=== PATIENT | male | born 1950 | race Caucasian/White ===

== ENCOUNTER 2019-09-15 10:00 | Outpatient (RCR) | payer MEDICARE, OTHER, SELFPAY ==
[2019-09-03 09:55] VITALS: BP 120/76; PULSE 73; RESP 18; TEMP 36.2; BMI 35.1
--- NOTE | 2019-09-03 10:05 | PCM.WC.HP ---
(1) Ulcer of right foot due to type 2 diabetes mellitus Status: Chronic Current Visit: Yes Code(s): E11.621 - Type 2 diabetes mellitus with foot ulcer; L97.519 - Non-pressure chronic ulcer of other part of right foot with unspecified severity (2) Cellulitis of right lower extremity Status: Acute Current Visit: Yes Code(s): L03.115 - Cellulitis of right lower limb (3) Abnormal x-ray of lower extremity Status: Acute Current Visit: Yes Code(s): R93.6 - Abnormal findings on diagnostic imaging of limbs (4) T2DM (type 2 diabetes mellitus) Status: Chronic Current Visit: Yes Code(s): E11.9 - Type 2 diabetes mellitus without complications (5) Gout Status: Chronic Current Visit: Yes Code(s): M10.9 - Gout, unspecified (6) Tenderness of right calf Status: Acute Current Visit: Yes Code(s): M79.661 - Pain in right lower leg (7) intermediate card tender current use of anticoagulant therapy Status: Chronic Current Visit: Yes Code(s): Z79.01 - intermediate card tender (current) use of anticoagulants (8) Afib Status: Chronic Current Visit: Yes Code(s): I48.91 - Unspecified atrial fibrillation (9) Asymptomatic superficial varicosities of lower extremity, bilateral Status: Chronic Current Visit: Yes Code(s): I83.93 - Asymptomatic varicose veins of bilateral lower extremities (10) Essential hypertension Status: Chronic Current Visit: Yes Code(s): I10 - Essential (primary) hypertension History of Present Illness Date of Service: 09/04/19 Chief Complaint: Right foot ulcer History of Wound: Satish is a pleasant 69-year-old male patient who presents today to the wound center for evaluation and treatment of a right foot ulcer. He has significant comorbidities of type 2 diabetes, hypertension, gout, A. fib, and long-term use of anticoagulants. Per patient and his , his type 2 diabetes is well controlled with a recent A1c of 6.1%. He has his A1c checked every 6 months with his primary care provider. He also reports his gout is well controlled with the use of allopurinol, and is unsure when his last gout flare occurred. Per , his INR is typically stable and within range; it was last checked about 1 month ago and was in normal range. In regards to his right foot ulcer, patient states that the wound first occurred in January 2019, but had not been bothersome. About 3 weeks ago, the ulcer became inflamed and painful, and he developed redness and swelling in his right lower extremity. He saw Dr. Manjarrez (podiatry), who sent him to the emergency room. While at the emergency room at [facility], patient had a foot x-ray, which patient and report was normal. After reviewing the xray report, there was noted to be no evidence of acute osteomyelitis, but there was a small foci of soft tissue gas seen laterally. He was given a dose of IV Clindamycin and started on oral Clindamycin and sent home. When no improvement was noted in his redness, swelling, and pain in RLE, he followed up with his primary care provider, who placed him on amoxicillin 500 mg 4 times daily. He is currently on the amoxicillin, but reports no improvement in his symptoms. He has not been using any particular methods of wound care. He washes his foot when in the shower, and typically leaves it uncovered. In the last few days, he has been placing a Band-Aid over the ulcer due to a small amount of clear to bloody drainage. He denies foul smelling or purulent drainage from the wound. He has been wearing a regular wide-fit tennis shoe. He rates pain 9/10 and shooting in right foot. He notes warmth of RLE and tenderness in right calf with ambulation. He does report nighttime chills within the past week, but denies any fever, nausea, vomiting, or diarrhea. Past Medical History Past Medical History: Chronic Problems Ulcer of right foot due to type 2 diabetes mellitus (Chronic) T2DM (type 2 diabetes mellitus) (Chronic) Gout (Chronic) residential current use of anticoagulant therapy (Chronic) Afib (Chronic) Asymptomatic superficial varicosities of lower extremity, bilateral (Chronic) Essential hypertension (Chronic) Allergies/Adverse Reactions: Allergies No Known Allergies Allergy (Verified 09/03/19 09:46) Home Medications: Ambulatory Orders Medication Instructions Recorded Allopurinol 300 mg PO DAILY 09/03/19 Amoxicillin 500 mg PO [id number] 09/03/19 Carvedilol 6.25 mg PO BID 09/03/19 Colestipol HCl 1 gm PO BID 09/03/19 Furosemide 40 mg PO BID 09/03/19 Metformin HCl 500 mg PO BID 09/03/19 Pantoprazole Sodium [Protonix] 40 mg PO DAILY 09/03/19 Potassium Chloride [Klor-Con] 20 meq PO BID 09/03/19 Simvastatin 40 mg PO DAILY 09/03/19 Sotalol HCl [Sotalol] 80 mg PO BID 09/03/19 Warfarin [Coumadin ([facility]KC)] 5 mg PO DAILY 09/03/19 Smoking Status: Former smoker Review of Systems Constitutional: Reports: Chills. Denies: Anorexia, Fever, Night Sweats, Malaise Eyes: Denies: Pain, Vision Change HEENT: Denies: Difficulty Swallowing, Sinus Congestion Cardiovascular: Reports: - - chronic afib. Denies: Chest Pain, Palpitations Respiratory: Denies: Cough, Shortness of Breath, Wheezing Gastrointestinal: Denies: Diarrhea, Nausea, Vomiting Genitourinary: Denies: Dysuria, Hematuria Musculoskeletal: Reports: Foot Pain - right foot pain at site of ulcer Skin: Reports: Skin Changes - erythema of right foot and anterior RLE; warm to touch, Wounds - Right lateral foot ulcer. Denies: Pruritis Neurological: Denies: Numbness, Tingling Hematologic/ Lymphatic: Denies: Easy Bruising, Easy Bleeding, Hx of blood clot - Physical Exam Vital Signs Temp Pulse Resp BP 97.1 F L 73 18 120/76 09/03/19 09:55 09/03/19 09:55 09/03/19 09:55 09/03/19 09:55 General: Alert, Oriented x3, Cooperative, No apparent distress HEENT: Atraumatic, EOMI, Normocephalic Neck: Supple, No JVD Lungs: Clear to auscultation, Normal air movement, No rhonchi, No wheeze, No rales Cardiovascular: Irregular Rate Abdomen: Bowel Sounds Present, Soft, Non Tender Extremities: No clubbing, No cyanosis, Capillary Refill Less than 3 Seconds, Edema - 3+ pitting edema in right lower leg and foot; calf circumference 43cm on right and 37.5cm on left; ankle circumference 31cm on right and 25.5cm on left; no edema of LLE, Peripheral Pulses Normal, Tenderness - tenderness to palpation of R lower leg, anterior and posterior; negative Gita's sign Skin: Ulcer/ Wound - 5th lateral metatarsal DFU, May 3 (see nursing documentation), Rash Present - erythema of anterior right lower leg and foot, outlined with marker in clinic today; skin is warm to touch and tender to palpation Wound Measurements and Assessment WC - Nurse 1 - General Ulcer Measurement Start: 09/03/19 09:45 Freq: Status: Active Protocol: Activity Type Activity Date Activity User E-Sign Co-Sign Detail Recorded Client Recorded Date Recorded By Document 09/03/19 09:55 RB [id number] 09/03/19 10:02 RB 09/03/19 09:55 Wound Center Nurse 1 [Ulcer Assessment] 1. R lateral foot -Combined with other wound No -Current Size (cm) - Length 0.9 -Current Size (cm) - Width 0.9 -Current Size (cm) - Depth 0.4 -Total Square Cm 0.81 -Photo Taken Yes -Tunneling No -Undermining/Tunneling No -Circular Undermining No -Exudate Amt Medium -Exudate Type Serosanguineous -Wound Margin Flat & Intact -Granulation Amt Small (1-33%) -Granulation Quality [place] -Slough/Fibrin Yes -Necrosis Amt Large (67-100%) -Necrotic Tissue Type Adherent Slough -Structure Exposed N/A -Texture (Evelin-wound Skin Appearance) Callus -Moisture (Evelin-wound Skin Appearance Assessed ) -Color (Evelin-wound Skin Appearance) Erythema -Temperature (Evelin-wound Skin No Abnormality Appearance) (Pt Warm) -Tenderness on Palpation (Evelin-wound No Skin Appearance) -Ulcer Cleansing Wound Cleanser -Foul Odor after Cleansing No -Anesthetic Used 5% Lidocaine Gel [Edema Assessment] -Lower Limb Edema Present Yes -Right Calf (cm) 41.2 -Right Ankle (cm) 29.5 -Left Calf (cm) 38 -Left Ankle (cm) 25 Musculoskeletal: Tenderness - tenderness to palpation of RLE Neurological: Cranial nerves II-XII grossly intact, Neuro grossly intact Psych/Mental Status: Normal Affect, Appropriate Debridement Note Wound debrided: right 5th lateral metatarsal DFU Laterality: Right Wound Grade/Stage: May 3 Type of Debridement: Excisional debridement Anesthesia Used: 4% Lidocaine Solution, 5% Lidocaine Gel Depth: to bone Percentage of wound debrided: 100 Instrument Used: 5mm curette, Forceps, - - scissors Tissue Removed: slough and devitalized tissues; calloused skin Severity: Fat Layer Exposed Amount of bleeding with debridement: Mild Bleeding Controlled with: Pressure Patient tolerated procedure well Assessment/Plan Active Problems Ulcer of right foot due to type 2 diabetes mellitus (Chronic) T2DM (type 2 diabetes mellitus) (Chronic) Gout (Chronic) residential current use of anticoagulant therapy (Chronic) Afib (Chronic) Asymptomatic superficial varicosities of lower extremity, bilateral (Chronic) Tenderness of right calf (Acute) Cellulitis of right lower extremity (Acute) Essential hypertension (Chronic) Abnormal x-ray of lower extremity (Acute) Assessment: See above problem list Plan: Sent to [facility] for stat ultrasound to rule out DVT of RLE, which was negative. Amoxicillin stopped and doxycycline started while we await results of wound culture. Prescription given for doxycycline 100 mg twice daily x14 days. Debridement performed today in clinic. Aquacel Ag applied. At home wound-care instructions: Daily dressing change with Aquacel Ag. May shower as needed. Apply a new dressing after showering. Compression: No compression initiated today. Will obtain wound culture and vascular studies prior to initiating compression. Instructed to keep legs and feet elevated whenever possible. Off-loading: Patient given surgical shoe for offloading. Instructed to wear this shoe when ambulating. Diet: Patient encouraged to increase protein and vitamin C intake while taking caution to avoid high carbohydrate and/or sugar intake. Labs/cultures/imaging: Cultures ordered and collected today. Routine baseline labwork ordered, to include INR and uric acid. Vascular studies ordered. MRI ordered to evaluate for osteomyelitis and/or gangrene. Follow-up: Return to clinic in 1 week for re-evaluation. If anytime symptoms worsen, including increased swelling, redness, pain, or purulent drainage from the foot ulcer, patient instructed to follow-up immediately in the emergency room. Redness of RLE outlined today in clinic and patient and instructed to present to ER if redness extends beyond the marked borders. Given the etiology and location of the wound, we will apply for applicable advanced skin substitutes (Puraply). We will request records from Dr. Manjarrez (podiatry) and ER visit. Code Visit Office Visits / Consults: 27529 OV L4 New [id number]: [id number] Tarsha musc/fascia 20 sq cm/<
--- NOTE | 2019-09-03 12:02 | WC ---
instructed pt and on dressing change and packing of wound . both verbalized understanding of dressing change.
--- NOTE | 2019-09-03 12:05 | VDLE_ITS ---
Reason For Study: Rt calf tenderness RIGHT GSV is normal. CFV is compressible, spontaneous, phasic, competent and demonstrates normal augmentation. FV is compressible, spontaneous, phasic, competent and demonstrates normal augmentation. POP V is compressible, spontaneous, phasic, competent and demonstrates normal augmentation. T/P Trunk is compressible. PTV is compressible. RT PerV is compressible. Procedure Exam performed in department. A preliminary report was called and/or faxed to [facility]. Interpretation Summary Deep veins of the right lower extremity are patent and compressible segmentally. There is no evidence of right lower extremity deep vein thrombosis. Valvular competence appears intact within the proximal deep venous system on the right . The right great saphenous vein appears patent and compressible segmentally. Ordering Physician: Elise Nair Referring Physician: Colt Davis Performed By: Sharda Rodriguez RVT
[2019-09-03 13:48] LABS: Absolute Lymphocyte Count 2.87 X10^3/uL (0.83-4.51); Basophil# 0.03 X10^3/uL; Basophil% 0.4 % (0-1); Eosinophil# 0.12 X10^3/uL; Eosinophils% 1.5 % (0-5); Hematocrit 38.3 % (40-54); Hemoglobin 12.3 g/dL (13.0-16.5); Lymphocyte # 2.87 X10^3/ul (4.0); Lymphocyte % 35.5 % (19-41); Mean Corp Hgb Conc 32.1 g/dL (32-36); Mean Corpuscular Hgb 29.6 pg (27.0-32.0); Mean Corpuscular Volume 92.1 fL (80-94); Mean Platelet Vol. 9.9 fl (6.2-12.0); Monocyte# 1.01 X10^3/uL; Monocyte% 12.5 % (0-10); NRBC Flagged by Analyzer 0 % (0-5); Neutrophil # 4.03 X10^3/uL (2.7-7.7); Neutrophil % 49.7 % (47-70); Platelet Count 347 K/mm3 (150-450); RBC Distribution Width CV 15.9 % (11.6-14.6); RBC Distribution Width SD 53.6 fl (35.1-43.9); Red Blood Count 4.16 M/mm3 (4.6-6.2); White Blood Count 8.1 K/mm3 (4.4-11.0)
[2019-09-03 14:06] LABS: ALB/GLOB Ratio 0.6 RATIO (0.9-2.4); AST(SGOT) 18 U/L (15-37); Alanine Aminotransfer ALT/SGPT 20 U/L (16-61); Alkaline Phosphatase 100 U/L (45-117); Anion Gap 5 (5-15); BUN 27 mg/dL (7-18); BUN/Creat Ratio 15.1 RATIO (10-20); Calcium,Total 9.3 mg/dL (8.5-10.1); Chloride 108 mmol/L (98-107); Creatinine, Serum 1.79 mg/dL (0.70-1.30); EST Glomerular Filtration Rate 40 mL/min (>60); Erythrocyte Sedimentation Rate 86 mm/hr (0-20); Est Glom Filt Rate - Afr Amer 48 mL/min (>60); Estimated Creatinine Clearance 36.62 ml/min; Globulin 5.3 g/dL (2.2-4.2); Glucose 107 mg/dL (74-106); Hemoglobin A1c 6.2 % (4.2-6.3); Potassium 4.4 mmol/L (3.5-5.1); Prealbumin 20.1 mg/dL (20.0-40.0); Protein, Total 8.3 g/dL (6.4-8.2); Sodium Level 138 mmol/L (136-145); Uric Acid 4.2 mg/dL (3.5-7.2)
[2019-09-10 09:52] VITALS: BP 122/65; PULSE 69; RESP 18; TEMP 36; BMI 35.1
--- NOTE | 2019-09-10 12:21 | PN.PCM_ITS ---
(1) Ulcer of right foot due to type 2 diabetes mellitus Status: Chronic Current Visit: Yes Code(s): E11.621 - Type 2 diabetes mellitus with foot ulcer; L97.519 - Non-pressure chronic ulcer of other part of right foot with unspecified severity (2) Cellulitis of right lower extremity Status: Acute Current Visit: Yes Code(s): L03.115 - Cellulitis of right lower limb (3) Abnormal x-ray of lower extremity Status: Acute Current Visit: Yes Code(s): R93.6 - Abnormal findings on diagnostic imaging of limbs (4) T2DM (type 2 diabetes mellitus) Status: Chronic Current Visit: Yes Qualifiers: Diabetes mellitus correction insulin use: without correction use Diabetes mellitus complication status: with skin complications Diabetes mellitus complication detail: with foot ulcer Qualified Code(s): E11.621 - Type 2 diabetes mellitus with foot ulcer; L97.509 - Non-pressure chronic ulcer of other part of unspecified foot with unspecified severity Code(s): E11.9 - Type 2 diabetes mellitus without complications (5) Gout Status: Chronic Current Visit: Yes Code(s): M10.9 - Gout, unspecified (6) Tenderness of right calf Status: Acute Current Visit: Yes Code(s): M79.661 - Pain in right lower leg (7) prison current use of anticoagulant therapy Status: Chronic Current Visit: Yes Code(s): Z79.01 - prison (current) use of anticoagulants (8) Afib Status: Chronic Current Visit: Yes Code(s): I48.91 - Unspecified atrial fibrillation (9) Asymptomatic superficial varicosities of lower extremity, bilateral Status: Chronic Current Visit: Yes Code(s): I83.93 - Asymptomatic varicose veins of bilateral lower extremities (10) Essential hypertension Status: Chronic Current Visit: Yes Code(s): I10 - Essential (primary) hypertension Type of Wound Date of Service: 09/10/19 Chief Complaint: Right foot ulcer-- 5th lateral metatarsal DFU History of Wound: Satish is a pleasant 69-year-old male patient who presents 09/03/19 to the wound center for evaluation and treatment of a right foot ulcer. He has significant comorbidities of type 2 diabetes, hypertension, gout, A. fib, and long-term use of anticoagulants. Per patient and his , his type 2 diabetes is well controlled with a recent A1c of 6.1%. He has his A1c checked every 6 months with his primary care provider. He also reports his gout is well controlled with the use of allopurinol, and is unsure when his last gout flare occurred. Per , his INR is typically stable and within range; it was last checked about 1 month ago and was in normal range. In regards to his right foot ulcer, patient states that the wound first occurred in January 2019, but had not been bothersome. He had been seeing Dr. Manjarrez (podiatry) for routine foot care, and he evaluated the wound in February 2019, but no intervention was performed or recommended per patient's . About 3 weeks prior to his evaluation at the [facility], the ulcer became inflamed and painful, and he developed redness and swelling in his right lower extremity. He saw Dr. Manjarrez (podiatry), who sent him to the emergency room. While at the emergency room at [facility], patient had a foot x-ray, which patient and report was normal. After reviewing the xray report, there was noted to be no evidence of acute osteomyelitis, but there was a small foci of soft tissue gas seen laterally. He was given a dose of IV Clindamycin and started on oral Clindamycin and sent home. When no improvement was noted in his redness, swelling, and pain in RLE, he followed up with his primary care provider, who placed him on amoxicillin 500 mg 4 times daily. He is currently on the amoxicillin, but reports no improvement in his symptoms. Prior to evaluation at [facility], he had not been using any particular methods of wound care. He was washing his foot when in the shower, and leaving it uncovered, or placing a Band-Aid over the ulcer as needed when experiencing small amounts of clear to bloody drainage. He denied foul smelling or purulent drainage from the wound. He had been wearing a regular wide-fit tennis shoe. He rates pain 9/10 and shooting in right foot. He notes warmth of RLE and tenderness in right calf with ambulation. He does report nighttime chills within the past week, but denies any fever, nausea, vomiting, or diarrhea. Progress of Wound: At his last visit, patient was started empirically on doxycycline. On 09/09/2019 when wound cultures were finalized, patient was called by myself and instructed to discontinue doxycycline, and placed on metronidazole 500 mg 3 times daily x7 days. He picked up metronidazole 09/09/2019 and has taken a total of 2 doses thus far. His has been assisting him with wound care, we can Aquasol AG into wound and changing daily. He was ordered an MRI at his last visit to evaluate for osteo-myelitis, however patient is unable to undergo MRI due to presence of spinal stimulator. His vascular studies have been scheduled, but not yet completed. He still notes redness and swelling to his right lower extremity, as well as tenderness to palpation. He does not feel the symptoms have improved, but denies any worsening of these symptoms. He followed up with his primary care provider, and has been started on tramadol for his pain. He reports this is providing mild relief of pain. He does note an increase in drainage from his right DFU, which is bloody and foul-smelling. He denies any fever, chills, nausea, vomiting, or diarrhea. He states he has not had much of an appetite in the last week, and is struggling to increase protein intake. - Physical Exam Vital Signs Temp Pulse Resp BP 96.8 F L 69 18 122/65 H 09/10/19 09:52 09/10/19 09:52 09/10/19 09:52 09/10/19 09:52 General: Alert, Oriented x3, Cooperative, No apparent distress HEENT: Atraumatic, EOMI, Normocephalic Extremities: No clubbing, No cyanosis, Diminished Peripheral Pulses, Edema - 3+ pitting edema in right lower extremity Skin: Ulcer/ Wound - May 3 DFU on right lateral foot (5th metatarsal) with increase in bloody, foul-smelling drainage. Erythema and swelling of right lower extremity appear to be slightly improved from last week. Warmth and tenderness of right lower extremity are still present, but stable. Undermining of the wound has increased and is now present from 3:00 to 8:00. Tunneling is now present at 2:00, extending toward the dorsal foot. Probes to bone. Wound Measurements and Assessment WC - Nurse 1 - General Ulcer Measurement Start: 09/03/19 09:45 Freq: Status: Active Protocol: Activity Type Activity Date Activity User E-Sign Co-Sign Detail Recorded Client Recorded Date Recorded By Document 09/10/19 09:52 [facility] [id number] 09/10/19 09:59 [facility] 09/10/19 09:52 Wound Center Nurse 1 [Ulcer Assessment] 1. R lateral foot -Combined with other wound No -Current Size (cm) - Length 0.6 -Current Size (cm) - Width 0.5 -Current Size (cm) - Depth 0.6 -Total Square Cm 0.30 -Photo Taken No -Epithelialization None Present -Tunneling No -Undermining/Tunneling Yes -Undermining/Tunneling Starts (O' 9 clock) -Undermining/Tunneling Ends (O'clock) 11 -Maximum Distance (cm) 0.4 -Circular Undermining No -Exudate Amt Large -Exudate Type Serosanguineous -Wound Margin Distinct, Outline Attached -Granulation Amt Small (1-33%) -Granulation Quality Pale,Red -Slough/Fibrin Yes -Necrosis Amt Large (67-100%) -Necrotic Tissue Type Adherent Slough -Texture (Evelin-wound Skin Appearance) Assessed, Localized Edema ,Scarring -Moisture (Evelin-wound Skin Appearance Assessed,Dry/ ) Scaly -Color (Evelin-wound Skin Appearance) Assessed, Erythema -Temperature (Evelin-wound Skin No Abnormality Appearance) (Pt Warm) -Tenderness on Palpation (Evelin-wound Yes Skin Appearance) -Ulcer Cleansing Rinsed/ Irrigated with Saline -Foul Odor after Cleansing No -Anesthetic Used 5% Lidocaine Gel WC - Nurse 2 - General Ulcer CM Notes Start: 09/03/19 09:45 Freq: Status: Active Protocol: Activity Type Activity Date Activity User E-Sign Co-Sign Detail Recorded Client Recorded Date Recorded By Document 09/10/19 10:30 [id number] 09/10/19 10:36 DV 09/10/19 10:30 Wound Center Nurse 2 [Procedure/Treatment] -Time 10:32 -Correct Patient Yes -Correct Side, Site, Position Yes -Correct Procedure Yes -Procedure Performed Yes -Type of Procedure Debridement -Clinical Debridement Muscle -Post Debridement Size (cm) - Length 0.8 -Post Debridement Size (cm) - Width 0.7 -Post Debridement Size (cm) - Depth 1.2 -Total Square Cm 0.56 -Wound/Ulcer Outcome Not Healed -Ulcer Cleansing Rinsed/ Irrigated with Saline -Foul Odor after Cleansing No -Bioengineered Tissue No -Bleeding Controlled with Pressure -Offloading No -Treatment Response Procedure Tolerated Well [See Physician Procedure note for Specifics] Musculoskeletal: Tenderness - Tenderness on palpation to right lower extremity Neurological: Neuro grossly intact Psych/Mental Status: Normal Affect, Appropriate Debridement Note Post-Debridement Measurements/Treatment WC - Nurse 2 - General Ulcer CM Notes Start: 09/03/19 09:45 Freq: Status: Active Protocol: Activity Type Activity Date Activity User E-Sign Co-Sign Detail Recorded Client Recorded Date Recorded By Document 09/03/19 10:30 DV [id number] 09/03/19 11:03 DV Document 09/10/19 10:30 DV [id number] 09/10/19 10:36 DV 09/03/19 09/10/19 10:30 10:30 Wound Center Nurse 2 1. R lateral foot -Time 10:46 10:32 -Correct Patient Yes Yes -Correct Side, Site, Position Yes Yes -Correct Procedure Yes Yes -Procedure Performed Yes Yes -Type of Procedure Debridement Debridement -Clinical Debridement Muscle Muscle -Post Debridement Size (cm) - Length 0.9 0.8 -Post Debridement Size (cm) - Width 1.1 0.7 -Post Debridement Size (cm) - Depth 0.9 1.2 -Total Square Cm 0.99 0.56 -Wound/Ulcer Outcome Not Healed Not Healed -Ulcer Cleansing Rinsed/ Rinsed/ Irrigated with Irrigated with Saline Saline -Foul Odor after Cleansing No No -Bioengineered Tissue No No -Bleeding Controlled with Pressure Pressure -Offloading No No -Treatment Response Procedure Procedure Tolerated Well Tolerated Well Pain Scale: 0-10 Numeric Is Patient Pain Free? Yes Wound debrided: Right lateral 5th metatarsal DFU Laterality: Right Wound Grade/Stage: May 3 Type of Debridement: Excisional debridement Anesthesia Used: 5% Lidocaine Gel Depth: to bone - Probes to bone Percentage of wound debrided: 100 Instrument Used: 5mm curette Tissue Removed: Slough and devitalized tissue Severity: Necrosis of Muscle Amount of bleeding with debridement: Moderate Bleeding Controlled with: Compression and gauze Patient tolerated procedure well Assessment/Plan Active Problems Ulcer of right foot due to type 2 diabetes mellitus (Chronic) T2DM (type 2 diabetes mellitus) (Chronic) 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 Aquacel Ag wicked into woundbed and covered with ABD pad. At home wound-care instructions: Continue daily dressing change with Aquacel Ag and cover with ABD pad for absorption of drainage. May shower as needed. Apply a new dressing after showering. Compression: No compression initiated today. Will await vascular studies prior to initiating compression-- scheduled. Instructed to keep legs and feet elevated whenever possible. Off-loading: Ordered surgical shoe for offloading. This was not in stock last week to give to patient. Instructed to avoid weightbearing on right foot as much as possible. Diet: Patient encouraged to increase protein and vitamin C intake while taking caution to avoid high carbohydrate and/or sugar intake. Importance of nutrition in wound healing emphasized during today's visit. Labs/cultures/imaging: Cultures returned positive for prevotella disiens and bacteriodes fragilis. Doxycycline DC'd and started on Metronidazole 09/09/19. Labs reviewed. CRP and ESR elevated, eGFR 40, WBC and A1c WNL. Vascular studies ordered-- scheduled. CT w/ contrast ordered to evaluate for osteomyelitis and evaluate extent of soft-tissue involvement. Patient instructed to hold Metformin x [address] hours [address] administration of CT contrast. Follow- up: Return to clinic in 1 week for evaluation by podiatry. Given depth of wound and concern for osteomyelitis, I feel it is necessary to be evaluated by podiatry. If at anytime symptoms worsen, including increased swelling, redness, pain, or purulent drainage from the foot ulcer, patient instructed to follow-up immediately in the emergency room. Redness of RLE remains outlined today in clinic and patient and instructed to present to ER if redness extends beyond the marked borders. Code Visit [id number]: [id number] Tarsha musc/fascia 20 sq cm/<
--- NOTE | 2019-09-14 16:55 | CT_ITS ---
STUDY: CT RIGHT FOOT REASON FOR EXAM: Male, 69 years old. Nonhealing wound in right foot. RADIATION DOSAGE (If Supplied By Facility): CTDIvol = ( 15.35 ) mGy, DLP = ( 449.71 ) mGycm TECHNIQUE: Thin section transaxial imaging of the foot was obtained, with sagittal and coronal reconstructed images. Individualized dose optimization techniques were used for this CT. COMPARISON: None. FINDINGS: Generalized osteopenia. Normal talus, calcaneus, and tarsal bones. Normal visualized tibiotalar, subtalar, talonavicular, calcaneocuboid, tarsal and tarsometatarsal articulations. Comminuted fracture of the head of the fifth metatarsal (axial series 2 images 80-88). Normal metatarsophalangeal joint of the great toe. Normal tibial and fibular sesamoid bones. Normal interphalangeal joint of the great toe. Normal phalanges of the great toe. Normal second through fifth metatarsophalangeal joints. Normal interphalangeal joints and phalanges of the lesser toes. Diffuse subcutaneous soft tissue edema compatible with cellulitis. Vascular calcification. CT/Extremity Lower WITH Contrast IMPRESSION: Diffuse osteopenia. Comminuted fracture of the head of the fifth metatarsal. Diffuse subcutaneous soft tissue edema compatible with cellulitis. No other abnormality. Electronically Signed: Jose Martinez MD at 11:18 EST , Service support ,
--- NOTE | 2019-09-15 10:08 | ART_ITS ---
Reason For Study: Swlling, Redness Procedure A bilateral lower extremity continuous wave Doppler with analog waveform analysis,segmental pressures,and ankle brachial indexes without exercise. Left Segmental Pressures Left brachial= 100mmHg. Left posterior tibial artery = >254mmHg. Left dorsalis pedis artery = >254mmHg. Left digit = 77 mmHg. The left dorsalis pedis waveforms are biphasic. The left posterior tibial artery waveforms are triphasic. Right Segmental Pressures Right brachial= 105mmHg. Right posterior tibial artery = 232mmHg. Right dorsalis pedis artery = 134mmHg. Right digit = >254 mmHg. The right dorsalis pedis waveforms are biphasic. The right posterior tibial artery waveforms are biphasic. Indices The right ankle brachial index by the dorsalis pedis is 1.28. The right ankle brachial index by the posterior tibial artery is 2.21. The right digital-brachial index is NC. The left ankle brachial index by the dorsalis pedis is NC. The left ankle brachial index by the posterior tibial artery is NC. The left digital-brachial index is 0.73. Interpretation Summary Biphasic Doppler waveforms are noted at ankle level on the right. Triphasic and biphasic Doppler waveforms are noted at ankle level on the left. Pulse-volume recording waveform amplitudes are diminished at digital level on the left, but otherwise satisfactory at all other levels bilaterally. The resting right ankle-brachial index is supra-normal. The resting left ankle-brachial index could not be calculated due to the non-compressibility of the vasculature. The right digital-brachial index could not be determined due to the non-compressibility of the vasculature. The left digital- brachial index is normal. There is evidence of arterial calcification at ankle level bilaterally, and at digital level on the right. However, there is no evidence of significant arterial occlusive disease in the lower extremities bilaterally. Clinical correlation is advised. Ordering Physician: Elise Nair Referring Physician: Colt Davis Performed By: Sharda Rodriguez RVT
--- NOTE | 2019-09-15 10:08 | VDLE_ITS ---
Reason For Study: Swelling, Redness RIGHT LEFT CFV is compressible, spontaneous, phasic, CFV is compressible, spontaneous, phasic, competent and demonstrates normal competent, and demonstrates normal augmentation. augmentation. FV is compressible, spontaneous, phasic, FV is compressible, spontaneous, phasic, competent and demonstrates normal competent and demonstrates normal augmentation. augmentation. POP V is compressible, spontaneous, phasic, POP V is compressible, spontaneous, phasic, competent and demonstrates normal competent and demonstrates normal augmentation. augmentation. T/P Trunk is compressible. T/P Trunk is compressible. PTV is compressible. PTV is compressible. RT PerV is compressible. LT PerV is compressible. SFJ is competent and measures 0.78 x 0.87 cm. SFJ is competent and measures 1.03 x 0.90 cm. GSV proximal thigh measures 0.44 x0.44 cm. GSV proximal thigh measures 0.50 x 0.48 cm. GSV above knee is competent. GSV at knee measures 0.42 x 0.43 cm. GSV at knee measures 0.39 x 0.37 cm. GSV INCOMPETENT throughout for greater than GSV below knee is INCOMPETENT for greater 0.5 seconds. than 0.5 seconds. INCOMPETENT payroll assistant noted 28 cm above ASV proximal calf is INCOMPETENT for greater medial malleolus. than 0.5 seconds and measures 0.27 x 0.27 cm. SSV at junction is competent and measures SSV at junction is competent and measures 0.24 x 0.22 cm. 0.23 x 0.22 cm. Procedure Exam performed in department. A preliminary report was called and/or faxed to . Interpretation Summary Deep veins of the lower extremities are bilaterally patent and compressible segmentally. There is no evidence of deep vein thrombosis on either side. Valvular competence appears intact within the proximal deep venous systems bilaterally. The great saphenous veins appear bilaterally patent and compressible segmentally. Sapheno-femoral junctions are bilaterally competent . The right great saphenous vein appears competent above the knee. The right great saphenous vein appears incompetent below the knee. The left great saphenous vein appears segmentally incompetent. Small saphenous veins are patent and competent bilaterally. An accessory saphenous vein in the right proximal calf is incompetent. An incompetent payroll assistant vein is noted in the left calf, located 28 centimeters proximal to the left medial malleolus. Ordering Physician: Elise Nair Referring Physician: Colt Davis Performed By: Sharda Rodriguez RVT
== END 2019-09-29 23:59 ==
LOC: CVS 10:00
PROVIDERS: Referring Provider Nurse Practitioner Family; Visit Provider Nurse Practitioner Family
DX: E11.621 Type 2 diabetes mellitus with foot ulcer (principal); L03.115 Cellulitis of right lower limb; L97.512 Non-pressure chronic ulcer of other part of right foot with fat layer exposed; L97.513 Non-pressure chronic ulcer of other part of right foot with necrosis of muscle; R93.6 Abnormal findings on diagnostic imaging of limbs; M10.9 Gout, unspecified; M79.661 Pain in right lower leg; M79.89 Other specified soft tissue disorders; L53.9 Erythematous condition, unspecified; I48.20 Chronic atrial fibrillation, unspecified; I10 Essential (primary) hypertension; Z79.899 Other long term (current) drug therapy; Z79.01 Long term (current) use of anticoagulants; Z79.84 Long term (current) use of oral hypoglycemic drugs; Z87.891 Personal history of nicotine dependence
CPT/HCPCS: 11043; 36415; 73701; 80053; 83036; 84134; 84550; 85025; 85652; 86140; 87070; 87075; 87076; 87077; 87205; 93923; 93970; 93971; 99203; Q9967; G0463